=== PATIENT | female | born 1960 | race Caucasian/White ===

== ENCOUNTER 2017-04-22 14:40 | Inpatient (IN) | payer OTHER ==
[~2017-04-22] VITALS: Ht 175.3 cm; Wt 81.5 kg
[~2017-04-22 14:40] MED LIST: multivitamin PO; prilosec PO; unisom PO
[2017-04-22] MEDS ORDERED: SODIUM CHLORIDE FLUSH 10ML SYR IVF ONE (15:30)
[2017-04-22] MEDS ORDERED: inhaler (15:31)
[2017-04-22] MEDS ORDERED: FEXO1TAB29 PO (15:37)
[2017-04-22] MEDS ORDERED: ALBU6.7H INH (15:37)
[2017-04-22] MEDS ORDERED: OMEP20TA62 PO (15:37)
[2017-04-22 16:09] LABS: HEMATOCRIT 19.9 % (34.6-47.8); HEMOGLOBIN 6.5 g/dL (11.7-16.4)
[2017-04-22 16:11] LABS: ASPARTATE AMINO TRANSFERASE 47 U/L (15-37); BLOOD UREA NITROGEN 8 mg/dL (7-18)
[2017-04-22 16:18] LABS: ANISOCYTOSIS 1+; HYPOCHROMIA 1+; POLYCHROMASIA 1+
[2017-04-22 16:19] LABS: TARGET CELLS 1+
[2017-04-22] MEDS ORDERED: POTASSIUM CHLORIDE 20 MEQ, MAGNESIUM SULFATE 2 GM, THIAMINE 100 MG, MVI ADULT 10 ML, FO... IV SCH (19:04)
[2017-04-22] MEDS ORDERED: ACETAMINOPHEN 325 MG TABLET PO ONE ×2 (19:30→21:30)
[2017-04-22] MEDS ORDERED: ONDANSETRON ODT 4 MG PO PRN (19:30)
[2017-04-22] MEDS ORDERED: ONDANSETRON 2MG/ML, 2ML IVPush PRN (19:30)
[2017-04-22] MEDS ORDERED: LABETALOL 5MG/ML, 20ML IVPush PRN (19:30)
[2017-04-22] MEDS: NICOTINE 14MG/24 HR PATCH.TD24 TD SCH (19:30)
[2017-04-22 19:50] LABS: FERRITIN 7.1 ng/mL (8-252)
[2017-04-22 20:00] VITALS: BP 127/64
[2017-04-22 21:53] VITALS: BP 116/60
[2017-04-22 22:01] VITALS: BP 127/64
[2017-04-22 22:12] VITALS: BP 104/53
[2017-04-22] MEDS: FAMOTIDINE 20 MG TABLET PO SCH (22:25)
[2017-04-22 22:27] VITALS: BP 106/52
[2017-04-22 22:36] LABS: OCCBLD OBC PASS
[2017-04-22 23:42] VITALS: BP 120/70
[2017-04-23] VITALS (9 sets, daily range): BP systolic 91–138; BP diastolic 49–74
[2017-04-23] MEDS: TEMAZEPAM 15 MG CAPSULE PO PRN ×3 (02:41→20:48)
[2017-04-23 06:13] LABS: BLOOD UREA NITROGEN 9 mg/dL (7-18)
[2017-04-23 06:14] LABS: HIV 1&2 ANTIBODY SCREEN Nonreactive (Nonreactive); HIV-1 p24 ANTIGEN Nonreactive (Nonreactive)
[2017-04-23 06:16] LABS: ASPARTATE AMINO TRANSFERASE 37 U/L (15-37)
[2017-04-23 06:21] LABS: HEMOGLOBIN 7.5 g/dL (11.7-16.4); WHITE BLOOD COUNT 4.4 x10^3/uL (3.4-10)
[2017-04-23 06:22] LABS: HEMATOCRIT 22.4 % (34.6-47.8)
[2017-04-23] MEDS: FAMOTIDINE 20 MG TABLET PO SCH ×2 (09:42→19:53)
[2017-04-23] MEDS ORDERED: FUROSEMIDE 20 MG/2 ML IV ONE (17:00)
[2017-04-23] MEDS: FERROUS GLUCONATE 324 MG TABLET PO SCH (18:37)
[2017-04-23] MEDS: ALBUMIN HUMAN 25% 100 ML IV SCH ×2 (18:37→23:06)
[2017-04-23] MEDS: NICOTINE 14MG/24 HR PATCH.TD24 TD SCH (19:30)
[2017-04-23] MEDS: CEFTRIAXONE PMX 1GM/50ML 50 ML IV SCH (19:54)
[2017-04-24 02:26] VITALS: BP 126/68
[2017-04-24 05:11] LABS: HEMOGLOBIN 7.4 g/dL (11.7-16.4); WHITE BLOOD COUNT 4.4 x10^3/uL (3.4-10)
[2017-04-24 05:29] LABS: ASPARTATE AMINO TRANSFERASE 40 U/L (15-37); BLOOD UREA NITROGEN 5 mg/dL (7-18)
[2017-04-24 05:30] LABS: HEMATOCRIT 22.3 % (34.6-47.8)
[2017-04-24] MEDS: ALBUMIN HUMAN 25% 100 ML IV SCH ×3 (05:42→17:26)
[2017-04-24 06:06] LABS: DIFF TOTAL CELLS COUNTED 100 CELL DIFF
[2017-04-24 06:17] LABS: ANISOCYTOSIS 1+; HYPOCHROMIA 1+; POLYCHROMASIA 1+; TARGET CELLS 1+; VERIFY COUNTS? YES
[2017-04-24 07:24] VITALS: BP 117/67
[2017-04-24] MEDS: MULTIVITAMIN 1 TABLET PO SCH (08:46)
[2017-04-24] MEDS: FAMOTIDINE 20 MG TABLET PO SCH ×2 (08:46→20:45)
[2017-04-24] MEDS: FUROSEMIDE 20 MG TABLET PO SCH (08:46)
[2017-04-24] MEDS: SPIRONOLACTONE 25 MG TABLET PO SCH (08:46)
[2017-04-24] MEDS: FOLIC ACID 1 MG TABLET PO SCH (08:46)
[2017-04-24] MEDS: FERROUS GLUCONATE 324 MG TABLET PO SCH ×2 (08:46→17:00)
[2017-04-24] MEDS: THIAMINE 100MG TABLET PO SCH (08:46)
[2017-04-24] MEDS ORDERED: POTASSIUM CHLORIDE 20 MEQ TAB.ER.PRT PO ONE (09:00)
[2017-04-24] MEDS: CHOLECALCIFEROL 1,000 UNIT TABLET PO SCH (10:32)
[2017-04-24 12:30] VITALS: BP 120/70
[2017-04-24] MEDS: NICOTINE 14MG/24 HR PATCH.TD24 TD SCH (19:30)
[2017-04-24 20:30] VITALS: BP 115/64
[2017-04-24] MEDS: CEFTRIAXONE PMX 1GM/50ML 50 ML IV SCH (20:45)
[2017-04-24] MEDS: TEMAZEPAM 15 MG CAPSULE PO PRN ×2 (20:46→21:29)
[2017-04-25 01:13] VITALS: BP 96/53
[2017-04-25 05:55] LABS: HEMOGLOBIN 7.2 g/dL (11.7-16.4); WHITE BLOOD COUNT 5.1 x10^3/uL (3.4-10)
[2017-04-25 05:58] LABS: HEMATOCRIT 22.5 % (34.6-47.8)
[2017-04-25 06:09] LABS: ASPARTATE AMINO TRANSFERASE 36 U/L (15-37); BLOOD UREA NITROGEN 5 mg/dL (7-18)
[2017-04-25 06:19] LABS: DIFF TOTAL CELLS COUNTED 100 CELL DIFF
[2017-04-25 06:28] LABS: VERIFY COUNTS? YES
[2017-04-25 06:29] LABS: ANISOCYTOSIS 1+; HYPOCHROMIA 1+; TARGET CELLS 1+
[2017-04-25 07:10] VITALS: BP 92/51
[2017-04-25] MEDS: FOLIC ACID 1 MG TABLET PO SCH (08:36)
[2017-04-25] MEDS: MULTIVITAMIN 1 TABLET PO SCH (08:36)
[2017-04-25] MEDS: CHOLECALCIFEROL 1,000 UNIT TABLET PO SCH (08:36)
[2017-04-25] MEDS: SPIRONOLACTONE 25 MG TABLET PO SCH (08:36)
[2017-04-25] MEDS: FAMOTIDINE 20 MG TABLET PO SCH (08:36)
[2017-04-25] MEDS: THIAMINE 100MG TABLET PO SCH (08:36)
[2017-04-25] MEDS: FERROUS GLUCONATE 324 MG TABLET PO SCH (08:37)
[2017-04-25] MEDS: FUROSEMIDE 20 MG TABLET PO SCH (08:37)
[2017-04-25 12:21] VITALS: BP 109/57
[2017-04-25 12:34] VITALS: BP 113/58
[2017-04-25 15:12] VITALS: BP 132/70
[2017-04-25 15:50] LABS: HEMATOCRIT 27.8 % (34.6-47.8); HEMOGLOBIN 9.2 g/dL (11.7-16.4)
[2017-04-25] MEDS ORDERED: CHOL10003 PO (17:28)
[2017-04-25] MEDS ORDERED: FURO20TA3 PO (17:28)
[2017-04-25] MEDS ORDERED: CEFD300C37 PO (17:28)
[2017-04-25] MEDS ORDERED: POTA10TA11 PO (17:28)
[2017-04-25] MEDS ORDERED: FERR325T16 PO (17:28)
[2017-04-25] MEDS ORDERED: MULT1TAB60 PO (17:28)
[2017-04-25] MEDS ORDERED: SPIR25TA PO (17:29)
== END 2017-04-25 18:50 | disposition home or self-care (01) | DRG 432 ==
LOC: ED 17:24 → EDIP 19:04 → 3NE 19:41
PROVIDERS: ADMIT Internal Medicine; ATTEND Internal Medicine
PROC: 0W9G3ZZ Drainage of Peritoneal Cavity, Percutaneous Approach (ICD-10-PCS; principal; 2017-04-22)
PROC: 30233N1 Transfusion of Nonautologous Red Blood Cells into Peripheral Vein, Percutaneous Approach (ICD-10-PCS; 2017-04-22)
PROC: 0W9G3ZX Drainage of Peritoneal Cavity, Percutaneous Approach, Diagnostic (ICD-10-PCS; 2017-04-22)
PROC: 30233N1 Transfusion of Nonautologous Red Blood Cells into Peripheral Vein, Percutaneous Approach (ICD-10-PCS; 2017-04-25)
DX: K70.31 Alcoholic cirrhosis of liver with ascites (principal); E43 Unspecified severe protein-calorie malnutrition; D68.9 Coagulation defect, unspecified; E11.9 Type 2 diabetes mellitus without complications; D50.9 Iron deficiency anemia, unspecified; F10.20 Alcohol dependence, uncomplicated; E44.0 Moderate protein-calorie malnutrition; K21.9 Gastro-esophageal reflux disease without esophagitis; J45.909 Unspecified asthma, uncomplicated; F17.210 Nicotine dependence, cigarettes, uncomplicated; K80.20 Calculus of gallbladder without cholecystitis without obstruction; R74.8 Abnormal levels of other serum enzymes; Z88.1 Allergy status to other antibiotic agents; Z68.26 Body mass index [BMI] 26.0-26.9, adult
CPT/HCPCS: 36415; 36430; 49083; 76700; 80053; 80307; 82042; 82272; 82306; 82607; 82728; 82746; 83540; 83550; 83615; 83690; 83735; 83880; 84100; 85014; 85018; 85025; 85045; 85610; 85730; 86703; 86704; 86706; 86708; 86803; 86850; 86900; 86923; 87070; 87205; 87324; 87338; 87340; 87899; 89051; 99285; J0696; J3411; J3475; J3480; J7042; P9047; G0435; J1940; P9016

== ENCOUNTER → 2017-06-25 | Outpatient (CLI) | payer OTHER ==
[~2017-06-25] MED LIST changes: +ALBU6.7H INH; +CEFD300C37 PO; +CHOL10003 PO; +FERR325T16 PO; +FEXO1TAB29 PO; +FURO20TA3 PO; +MULT1TAB60 PO; +OMEP20TA62 PO; +POTA10TA11 PO; +SPIR25TA PO; +inhaler
== END | disposition home or self-care (01) ==
LOC: CFH 08:47
PROVIDERS: ATTEND Internal Medicine
DX: Z12.31 Encounter for screening mammogram for malignant neoplasm of breast (principal); K70.30 Alcoholic cirrhosis of liver without ascites; K80.20 Calculus of gallbladder without cholecystitis without obstruction; K76.0 Fatty (change of) liver, not elsewhere classified
CPT/HCPCS: 76700; G0202